=== PATIENT | female | born 1990 | race Caucasian/White ===

== ENCOUNTER 2025-06-30 00:54 | Emergency (ER) | payer OTHER ==
[2025-06-30] MEDS: Lidocaine 1% with EPINEPHrine 1:100,000 20 ML MDV INJECT ONE (01:20)
[2025-06-30] MEDS: Diphtheria,Pertussis(Acell),Tetanus Vaccine 0.5 ML Syringe IM ONE (01:20)
[2025-06-30 01:22] LABS: PLATELET COUNT,PLT 301 K/uL (130-375); RED BLOOD CELL COUNT 4.42 M/uL (3.77-5.24)
[2025-06-30 01:38] LABS: A/G RATIO 1.1 (1.2-2.2); ALANINE AMINOTRANSFERASE,ALT 35 U/L (12-78); ASPARTATE AMNIOTRANSFERASE,AST 25 U/L (15-37); BILIRUBIN TOTAL 0.2 mg/dL (0.2-1.0); BLOOD UREA NITROGEN,BUN 18 mg/dL (7-18); CARBON DIOXIDE,CO2 28 mmol/L (21-32); CHLORIDE,CL 105 mmol/L (100-108); CREATININE 0.7 mg/dL (0.6-1.0); EST CRCL DRUG DOSING (CG) 104.01 mL/min; ESTIMATED GFR 115 mL/min (>60); GLUCOSE RANDOM 87 mg/dL (74-106); POTASSIUM,K 4.1 mmol/L (3.6-5.2); PROTEIN TOTAL,TP 7.7 g/dL (6.4-8.2); SODIUM,NA 141 mmol/L (140-148)
[2025-06-30 01:39] LABS: BAND ABSOLUTE MAN 0.30 K/uL; BAND PERCENT MAN 3 % (5-11); LYMPHOCYTES ABSOLUTE MAN 4.65 K/uL (0.8-3.3); LYMPHOCYTES PERCENT MAN 46 % (24-44); MONOCYTES ABSOLUTE MAN 0.81 K/uL (0.20-0.90); MONOCYTES PERCENT MAN 8 % (2-6); NEUTROPHILS ABSOLUTE MAN 4.34 K/uL (1.0-7.6); SEG NEUTROPHILS PERCENT MAN 43 % (36-66)
[2025-06-30 01:40] LABS: WHITE BLOOD CELL COUNT,WBC 10.1 K/uL (3.2-11.0)
[2025-06-30 02:05] LABS: APPEARANCE,URINE CLEAR (CLEAR); GLUCOSE,URINE NEGATIVE (NEGATIVE); OCCULT BLOOD,URINE TRACE-INTACT (NEGATIVE)
[2025-06-30 02:06] LABS: AMPHETAMINES SCREEN, URINE NEGATIVE (NEGATIVE); METHADONE SCREEN, URINE NEGATIVE (NEGATIVE); METHAMPHETAMINES SCREEN, URINE NEGATIVE (NEGATIVE); OXYCODONE SCREEN,URINE NEGATIVE (NEGATIVE); PROPOXYPHENE SCREEN,URINE NEGATIVE (NEGATIVE); THC SCREEN,URINE 50 NG/ML NEGATIVE (NEGATIVE)
[2025-06-30 02:18] LABS: SQUAMOUS EPITHELIAL CELLS,UR FEW /HPF; UROTHELIAL CELLS,URINE NOT SEEN /HPF
[2025-06-30] MEDS: Iopamidol 612 MG/ML 100 ML Bottle IV SCH (02:47)
[2025-06-30] MEDS: Sodium Chloride 0.9% 10 ML Syringe FLUSH ONE (02:47)
== END 2025-06-30 03:31 | disposition home or self-care (01) ==
LOC: JP.ED 00:54
DX: S01.81XA Laceration without foreign body of other part of head, initial encounter (principal); E86.0 Dehydration; V89.2XXA Person injured in unspecified motor-vehicle accident, traffic, initial encounter; Z79.899 Other long term (current) drug therapy; Z23 Encounter for immunization
CPT/HCPCS: 12015; 36415; 70450; 71260; 72125; 74177; 76377; 80053; 80305; 80307; 81001; 81025; 85025; 90471; 90715; 96360; 99284; J2004; J7030; Q9967; 12004